=== PATIENT | male | born 1990 | race Caucasian/White ===

== ENCOUNTER 2017-08-01 22:47 | Inpatient (IN) | payer MEDICAID ==
[~2017-08-01] VITALS: Ht 170.2 cm; Wt 86.2 kg
[2017-08-01] MEDS ORDERED: ONDANSETRON HCL 4MG/2ML VIAL IV STA (23:43)
[2017-08-01] MEDS ORDERED: SODIUM CHLORIDE 0.9% 1,000 ML IV ONE (23:43)
[2017-08-02 00:08] LABS: BASOPHILS % 0.3 % (0.0-2.0); EOSINOPHILS % 0.3 % (0.0-5.0); HEMATOCRIT. 44.4 % (42.0-52.0); HEMOGLOBIN. 14.6 g/dL (14.0-18.0); LYMPHOCYTES % 11.1 % (20.0-50.0); MEAN CORPUSCULAR HEMOGLOBIN 28.2 pg (28.0-32.0); MEAN CORPUSCULAR VOLUME 85.5 fL (80.0-94.0); MEAN PLATELET VOLUME 9.5 fl (7.4-10.4); MONOCYTES % 6.4 % (2.0-8.0); NEUTROPHILS % 81.9 % (40.0-76.0); PLATELET 186 x1000/uL (130-400); RED BLOOD CELL COUNT 5.19 mill/uL (4.7-6.1); RED CELL DISTRIBUTION WIDTH 13.9 % (11.6-14.6)
[2017-08-02 00:13] LABS: CHLORIDE 103 mEq/L (98-107)
[2017-08-02 00:14] LABS: PROTHROMBIN TIME 10.1 sec (9.4-11.6)
[2017-08-02 00:19] LABS: AMMONIA < 10 uMol/L (<32)
[2017-08-02 00:21] LABS: CARBON DIOXIDE 25 mEq/L (21-32); CREATINE KINASE 273 IU/L (39-308); ETHANOL BLOOD < 10 mg/dL
[2017-08-02 02:52] LABS: CLARITY URINE CLEAR (CLEAR); COLOR URINE YELLOW (YELLOW); KETONES URINE TRACE (NEGATIVE); LEUKOCYTE ESTERASE URINE NEGATIVE (NEGATIVE); NITRITE URINE NEGATIVE (NEGATIVE); OCCULT BLOOD URINE NEGATIVE (NEGATIVE); PH URINE 5.5 (4.5-8.0); PROTEIN URINE TRACE (NEGATIVE); SPECIFIC GRAVITY URINE 1.036 (1.005-1.030)
[2017-08-02 03:02] LABS: *AMPHETAMINES SCREEN URINE NEGATIVE (NEGATIVE); *BARBITURATES SCREEN URINE NEGATIVE (NEGATIVE); *BENZODIAZEPINES SCREEN URINE NEGATIVE (NEGATIVE); *COCAINE SCREEN URINE NEGATIVE (NEGATIVE); CANNABINOID URINE SCREEN PRESUMTIVE POSITIVE (NEGATIVE); METHADONE URINE SCREEN NEGATIVE (NEGATIVE); OPIATES URINE SCREEN NEGATIVE (NEGATIVE); PHENCYCLIDINE URINE SCREEN NEGATIVE (NEGATIVE)
[2017-08-02] MEDS ORDERED: ONDANSETRON HCL 4MG/2ML VIAL IV PRN (07:30)
[2017-08-02 08:00] VITALS: BP 135/75
[2017-08-02] MEDS: DEXT 5%/0.45% NACL 1000ML 1,000 ML IV SCH ×2 (09:15→23:26)
[2017-08-02] MEDS: ENOXAPARIN 40MG/0.4ML SYR SUBCUT SCH (09:15)
[2017-08-02 10:56] VITALS: BP 132/75
[2017-08-02] MEDS ORDERED: DOXY50CA2 PO (11:00)
[2017-08-02 12:00] VITALS: BP 108/63
[2017-08-02] MEDS ORDERED: SODIUM CHLORIDE 0.9% 10ML VIAL ONE (14:55)
[2017-08-02 16:01] VITALS: BP 112/61
[2017-08-02 19:59] VITALS: BP 120/71
[2017-08-03] VITALS: BP 123/68
[2017-08-03 04:13] VITALS: BP 104/64
[2017-08-03 07:45] LABS: BASOPHILS % 0.3 % (0.0-2.0); EOSINOPHILS % 1.4 % (0.0-5.0); HEMATOCRIT. 42.5 % (42.0-52.0); HEMOGLOBIN. 14.3 g/dL (14.0-18.0); LYMPHOCYTES % 19.4 % (20.0-50.0); MEAN CORPUSCULAR HEMOGLOBIN 29.1 pg (28.0-32.0); MEAN CORPUSCULAR VOLUME 86.5 fL (80.0-94.0); MONOCYTES % 9.3 % (2.0-8.0); NEUTROPHILS % 69.6 % (40.0-76.0); PLATELET 181 x1000/uL (130-400); RED BLOOD CELL COUNT 4.92 mill/uL (4.7-6.1)
[2017-08-03 08:00] VITALS: BP 133/83
[2017-08-03 08:05] LABS: CARBON DIOXIDE 26 mEq/L (21-32); CHLORIDE 105 mEq/L (98-107)
[2017-08-03] MEDS: ENOXAPARIN 40MG/0.4ML SYR SUBCUT SCH (09:00)
[2017-08-03 10:05] VITALS: BP 133/83
== END 2017-08-03 10:30 | disposition home or self-care (01) | DRG 52 ==
LOC: ER 23:12 → 7WST 08-02 06:13 → ENRESERV 08-02 07:15 → SUPCPDRO 08-02 07:25
PROVIDERS: ADMIT Hospitalist; ATTEND Hospitalist
DX: G92 Toxic encephalopathy (principal); N17.9 Acute kidney failure, unspecified; D72.829 Elevated white blood cell count, unspecified; Z79.899 Other long term (current) drug therapy; Z91.013 Allergy to seafood; T40.2X5A Adverse effect of other opioids, initial encounter
CPT/HCPCS: 36415; 70450; 78582; 80053; 80305; 81001; 82140; 82550; 85025; 85610; 93005; 96374; 99285; A4216; A9558; G0482; J1650; J2405; J7030